=== PATIENT | female | born 1985 | race African-American/Black ===

== ENCOUNTER 2016-05-27 19:57 | Emergency (ER) | payer MEDICARE, OTHER ==
[~2016-05-27] VITALS: Ht 165.1 cm; Wt 88.5 kg
[~2016-05-27 19:57] MED LIST: FOLI1TAB16 PO; HYDR500C3 PO; OXYC10TA PO; OXYC30TA PO; PROAIR HFA8.5 GM IH
[2016-05-27] MEDS ORDERED: IV NORMAL SALINE 1000ML BAG 1,000 ML IV ONE (20:30)
[2016-05-27] MEDS ORDERED: HYDROMORPHONE 2 MG/ML VIAL. IV ONE (20:30)
[2016-05-27] MEDS ORDERED: ONDANSETRON PF 4 MG/2 ML VIAL. IV ONE (20:30)
[2016-05-27 20:32] LABS: BASO # 0.1 x10^3/uL (0.0-0.2); BASO % 1 % (0-3); EOS % 2 % (0-3); HEMATOCRIT 30.4 % (36.0-47.0); HEMOGLOBIN 10.4 g/dL (12.0-15.5); LYMPH # 3.8 x10^3/uL (1.0-4.8); LYMPH % 25 % (24-48); MEAN CORPUSCULAR HEMOGLOBIN 31 pg (25-35); MEAN CORPUSCULAR HGB CONC 34 g/dL (31-37); MEAN CORPUSCULAR VOLUME 91 fL (79-100); MONO % 9 % (0-9); NEUT % 63 % (31-73); PLATELET COUNT 233 x10^3/uL (140-400); RED BLOOD COUNT 3.34 x10^6/uL (3.50-5.40); RED CELL DISTRIBUTION WIDTH 14.7 % (11.5-14.5); WHITE BLOOD COUNT 15.2 x10^3/uL (4.0-11.0)
[2016-05-27 20:36] LABS: RETIC COUNT 3.4 % (0.5-2.5)
[2016-05-27 20:42] LABS: CALCIUM 8.4 mg/dL (8.5-10.1); CREATININE 0.7 mg/dL (0.6-1.0); GFR 118.1; POTASSIUM 3.6 mmol/L (3.5-5.1)
--- NOTE | 2016-05-27 20:57 | PHYS DOC ---
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 She states her right arm is aching and throbbing. She denies that it swollen. She states she did not injure the arm. She states she's been unable to get it under control with her pain regimen at home. She denies any fever or chest pain. [] Review of Systems Review of Systems Constitutional: Denies fever or chills [] Eyes: Denies change in visual acuity, redness, or eye pain [] HENT: Denies nasal congestion or sore throat [] Respiratory: Denies cough or shortness of breath [] Cardiovascular: No additional information not addressed in HPI [] GI: Denies abdominal pain, nausea, vomiting, bloody stools or diarrhea [] : Denies dysuria or hematuria [] Musculoskeletal: Right arm pain [] Integument: Denies rash or skin lesions [] Neurologic: Denies headache, focal weakness or sensory changes [] Endocrine: Denies polyuria or polydipsia [] Current Medications Current Medications Current Medications Medications (Trade) Dose Ordered Sig/[facility] Start Time Stop Time Status Last Admin Dose Admin Hydromorphone HCl (Dilaudid) 1 mg 1X ONCE 05/27/16 20:30 05/27/16 20:31 DC 05/27/16 20:39 1 MG Ondansetron HCl (Zofran) 4 mg 1X ONCE 05/27/16 20:30 05/27/16 20:31 DC 05/27/16 20:39 4 MG Sodium Chloride (Iv Sodium Chloride 0.9% 1000ml Bag) 1,000 ml @ 1,000 mls/hr 1X ONCE 05/27/16 20:30 05/27/16 21:29 DC 05/27/16 20:40 1,000 MLS/HR Allergies Allergies Allergies Coded Allergies Type Severity Reaction Last Updated Verified zolmitriptan Allergy Severe angioedema 10/04/14 Yes Physical Exam Physical Exam Constitutional: Well developed, well nourished, moderate distress, non-toxic appearance. [] HENT: Normocephalic, atraumatic, bilateral external ears normal, oropharynx moist, no oral exudates, nose normal. [] Eyes: PERRLA, EOMI, conjunctiva normal, no discharge. [] Neck: Normal range of motion, no tenderness, supple, no stridor. [] Cardiovascular:Heart rate regular rhythm, no murmur [] Lungs & Thorax: Bilateral breath sounds clear to auscultation [] Abdomen: Bowel sounds normal, soft, no tenderness, no masses, no pulsatile masses. [] Skin: Warm, dry, no erythema, no rash. [] Back: No tenderness, no CVA tenderness. [] Extremities: No tenderness, no cyanosis, no clubbing, ROM intact, no edema, no swelling. [] Neurologic: Alert and oriented X 3, normal motor function, normal sensory function, no focal deficits noted. [] Psychologic: Anxious. [] Current Patient Data Vital Signs Vital Signs Date Time Temp Pulse Resp B/P Pulse Ox O2 Delivery O2 Flow Rate FiO2 05/27/16 20:25 99.3 81 20 125/72 95 Room Air 99.3 Lab Values Laboratory Tests Test 05/27/16 20:20 White Blood Count 15.2x10^3/uL (4.0-11.0) H Red Blood Count 3.34x10^6/uL (3.50-5.40) L Hemoglobin 10.4g/dL (12.0-15.5) L Hematocrit 30.4% (36.0-47.0) L Mean Corpuscular Volume 91fL (79-100) Mean Corpuscular Hemoglobin 31pg (25-35) Mean Corpuscular Hemoglobin Concent 34g/dL (31-37) Red Cell Distribution Width 14.7% (11.5-14.5) H Platelet Count 233x10^3/uL (140-400) Neutrophils (%) (Auto) 63% (31-73) Lymphocytes (%) (Auto) 25% (24-48) Monocytes (%) (Auto) 9% (0-9) Eosinophils (%) (Auto) 2% (0-3) Basophils (%) (Auto) 1% (0-3) Neutrophils # (Auto) 9.6x10^3uL (1.8-7.7) H Lymphocytes # (Auto) 3.8x10^3/uL (1.0-4.8) Monocytes # (Auto) 1.4x10^3/uL (0.0-1.1) H Eosinophils # (Auto) 0.3x10^3/uL (0.0-0.7) Basophils # (Auto) 0.1x10^3/uL (0.0-0.2) Platelet Estimate Adequate (ADEQUATE) Giant Platelets Occ Polychromasia Slight Sickle Cells Occ Target Cells Mod Schistocytes Few Reticulocyte Count (auto) 3.4% (0.5-2.5) H Sodium Level 143mmol/L (136-145) Potassium Level 3.6mmol/L (3.5-5.1) Chloride Level 106mmol/L (98-107) Carbon Dioxide Level 28mmol/L (21-32) Anion Gap 9 (6-14) Blood Urea Nitrogen 4mg/dL (7-20) L Creatinine 0.7mg/dL (0.6-1.0) Estimated GFR (Cockcroft-Gault) 118.1 Glucose Level 105mg/dL (70-99) H Calcium Level 8.4mg/dL (8.5-10.1) L Laboratory Tests 05/27/16 20:20 Laboratory Tests 05/27/16 20:20 EKG EKG [] Radiology/Procedures Radiology/Procedures [] Course & Med Decision Making Course & Med Decision Making Pertinent Labs and Imaging studies reviewed. (See chart for details) [31-year-old female with sickle cell disease presents with sickle cell pain. She had right arm pain. She was given IV fluids Dilaudid which did help alleviate her symptoms. Patient does have a slightly elevated reticulocyte count I feel patient is safe for discharge home at this time Dragon Disclaimer Dragon Disclaimer This electronic medical record was generated, in whole or in part, using a voice recognition dictation system. Departure Departure Impression: Primary Impression: Sickle cell pain crisis Disposition: 01 HOME, SELF-CARE Condition: IMPROVED Referrals: JANKI MILLER MD (PCP) Patient Instructions: Sickle Cell Pain Crisis Additional Instructions: Thank you for allowing us to participate in your care today. Followup with your primary care physician in 3 days if your symptoms do not improve. Return to the emergency department you have any new or concerning findings. This should be evaluated by the primary care physician and any necessary consulting services for continued management within a few days after discharge. Return to emergency room if you have any new or concerning symptoms including but not limited to fever, chills, nausea, vomiting, intractable pain, any new rashes, chest pain, shortness of air, uncontrolled bleeding, difficulty breathing, and/or vision loss. You may have been prescribed medication that can change in your level of thinking and ability to operate machinery. These medications include hydrocodone and Ativan. Also, Benadryl has been known to do this as well. Be sure to check with your pharmacist and ask if the medications you've prescribed can affect your level of consciousness. I recommend not operating heavy machinery or driving while on medication such as these. Scripts Oxycodone/Apap 5-325 (Percocet 5-325 Mg Tablet)1 Each Tablet1 Tab PO PRN Q6HRS PRN PAIN #30 TAB Prov:SARANYA ORDRIGUEZ DO 05/27/16 SARANYA RODRIGUEZ DO May 27, 2016 20:57
[2016-05-27 21:19] LABS: PLT ESTIMATE ADEQUATE (ADEQUATE); SICKLE CELLS OCC; TARGET CELLS MOD
[2016-05-27 21:20] LABS: POLYCHROMASIA SLIGHT; SCHISTOCYTES FEW
[2016-05-27 21:39] VITALS: BP 117/69
[2016-05-27] MEDS ORDERED: OXYC-323 PO (21:52)
== END 2016-05-27 22:00 | disposition home or self-care (01) ==
LOC: ER 19:57
DX: D57.00 Hb-SS disease with crisis, unspecified (principal); Z88.8 Allergy status to other drugs, medicaments and biological substances
CPT/HCPCS: 36415; 80048; 85007; 85027; 85045; 96361; 96374; 96375; 99284; J1170; J2405; J7030

== ENCOUNTER → 2016-07-16 | Outpatient (CLI) | payer MEDICARE, OTHER ==
[~2016-07-16] VITALS: Ht 167.6 cm; Wt 87.1 kg
[~2016-07-16] MED LIST changes: +LIDOCAINE 1% / SOD BICARB 8.4% 20 ML VIAL. IJ ONE; +OXYC-323 PO
--- NOTE | 2016-07-16 14:24 | RAD ---
Procedure: Ultrasound-guided right breast biopsy with vacuum assistance and marker deployment. Diagnostic right mammogram. History: Known fibroadenoma, biopsy proven. Second mass in the right breast. Technique: The procedure, its risk and benefits, and potential complications were discussed with the patient. All questions were answered. Written consent to proceed was obtained. Timeout procedure was performed. Patient was prepped and draped in the usual manner. 1% lidocaine was administered locally. The previously biopsied mass around 10:00 as well as the mass of concern at 12:00 were both identified. 12-gauge [place] vacuum-assisted needle was positioned into the mass at 12:00, image documenting needle position stored. 5 samples were obtained. While attempting to place the marker, the guide needle became dislodged. Therefore, an Ultracor gel marker was instead placed. Image documenting needle and marker position was stored. The patient tolerated the procedure well. No significant hematoma post procedure was identified. Post procedure CC and MLO views demonstrates placement of a marker. Mass biopsied was occult on mammogram, only visualized on previous ultrasound. Impression: Ultrasound-guided biopsy with vacuum assisted device and placement of marker. Await final pathology results. Addendum: Pathology results are now available. Fibroadenomatous changes as well as fibrocystic changes with components of stromal fibrosis, cystic change and focal chronic inflammation are noted. There is no atypia or evidence of malignancy. Findings are compatible with the imaging appearance which was most suggestive of fibroadenoma. Previous biopsy of second lesion also reportedly demonstrated fibroadenoma.
--- NOTE | 2016-07-17 14:27 | PATHOLOGY ---
PATHOLOGY REPORT * * * * * * * * FINAL DIAGNOSIS: Breast tissue, right breast mass needle biopsy: - Fibrocystic changes with components of stromal fibrosis, cystic change, and focal chronic inflammation. - Fibroadenomatous changes, focal. COMMENT: There is no atypia or evidence of malignancy. (JPM:; d/t: 07/17/16) REPORT ELECTRONICALLY SIGNED BY: Rogers Garcia M.D. DATE/TIME: 07/17/2016 14:25 * * * * * * * * GROSS PATHOLOGY: Received in formalin labeled "Una Vanessa, R breast," are multiple needle cores of yellow-zuniga fibrofatty tissue measuring 2.4 x 2.2 x 0.4 cm in aggregate dimensions. The tissue is submitted in its entirety in cassette A1. The cold ischemic time and time in formalin are not provided. The time out of formalin is 9:51 PM on 07/16/2016. (CAA; 07/16/2016) INITIAL CPT CODE(S): A; 82098 Professional services performed by [facility] [place] [address] Technical services performed by [facility] at [address] [place] [address]. SPECIMEN(S) RECEIVED: A.Right breast biopsy CLINICAL HISTORY: Right breast mass biopsy PATIENT: UNA VANESSA /AGE: 1 1985 (Age: 31) PATIENT #: [id number] ALT CASE #: SPECIMEN COLLECTION DATE: 07/16/2016 SPECIMEN RECEIVED DATE: 07/16/2016 [facility] - [address] [place] [address] - PHONE: [phone] * * * END OF REPORT * * *
== END | disposition home or self-care (01) ==
LOC: US 09:54
PROVIDERS: ATTEND Surgery
DX: N63 Unspecified lump in breast (principal)
CPT/HCPCS: 76942; C1713; G0206; 77065

== ENCOUNTER 2017-05-03 06:58 | Emergency (ER) | payer MEDICARE, OTHER ==
[2017-05-03] MEDS: BUPIVACAINE 0.5% 50 ML VIAL. INFIL (08:38)
== END 2017-05-03 08:42 | disposition home or self-care (01) ==
LOC: ER 06:58
DX: S61.101A Unspecified open wound of right thumb with damage to nail, initial encounter (principal); Z88.8 Allergy status to other drugs, medicaments and biological substances; W50.0XXA Accidental hit or strike by another person, initial encounter; Y93.89 Activity, other specified; Y92.89 Other specified places as the place of occurrence of the external cause; Y99.8 Other external cause status
CPT/HCPCS: 29130; 64450; 99284-25; J3490

== ENCOUNTER 2018-02-19 03:17 | Emergency (ER) | payer MEDICARE, OTHER ==
[~2018-02-19] VITALS: Ht 165.1 cm; Wt 88.0 kg
[~2018-02-19 03:17] MED LIST changes: +HYDR500C16 PO; -HYDR500C3 PO; +IBUP-1060 PO; -LIDOCAINE 1% / SOD BICARB 8.4% 20 ML VIAL. IJ ONE
--- NOTE | 2018-02-19 03:46 | PHYS DOC ---
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 She's not sure what kind of sickle cell disease she has. She is followed by Dr. Coyne at the [facility]. She was diagnosed with sickle-cell at 20 years old. Her last crisis was a week ago which she treated home with oxycodone. She "normally gets Dilaudid" in the emergency department for her sickle cell crises. Last 3 days, she's had progressive bilateral leg pain and intermittent chest pain no shortness breath or fevers. Denies any abdominal pain nausea vomiting. Review of Systems Review of Systems Constitutional: Denies fever or chills Eyes: Denies change in visual acuity, redness, or eye pain HENT: Denies nasal congestion or sore throat Respiratory: Denies cough or shortness of breath Cardiovascular: With chest pain, no palpitations GI: Denies abdominal pain, nausea, vomiting, bloody stools or diarrhea : Denies dysuria or hematuria Musculoskeletal: Denies back pain with bilateral leg pain Integument: Denies rash or skin lesions Neurologic: Denies headache, focal weakness or sensory changes Endocrine: Denies polyuria or polydipsia All other systems were reviewed and found to be within normal limits, except as documented in this note. Current Medications Current Medications Current Medications Medications (Trade) Dose Ordered Sig/[facility] Start Time Stop Time Status Last Admin Dose Admin Cephalexin HCl (Keflex) 500 mg 1X ONCE 02/19/18 06:30 02/19/18 06:31 DC 02/19/18 06:42 500 MG Fentanyl Citrate (Fentanyl 2ml Vial) 50 mcg 1X ONCE 02/19/18 05:30 02/19/18 05:31 DC 02/19/18 05:39 50 MCG Sodium Chloride 1,000 ml @ 1,000 mls/hr 1X ONCE 02/19/18 04:30 02/19/18 05:29 DC 02/19/18 04:30 1,000 MLS/HR Allergies Allergies Allergies Coded Allergies Type Severity Reaction Last Updated Verified zolmitriptan Allergy Severe angioedema 10/04/14 Yes Physical Exam Physical Exam Constitutional: Well developed, well nourished, no acute distress, non-toxic appearance. HENT: Normocephalic, atraumatic, bilateral external ears normal, oropharynx moist, no oral exudates, nose normal. Eyes: PERRLA, EOMI, conjunctiva normal, no discharge. Neck: Normal range of motion, no tenderness, supple, no stridor. Cardiovascular:Heart rate regular rhythm, no murmur Lungs & Thorax: Bilateral breath sounds clear to auscultation Abdomen: Bowel sounds normal, soft, no tenderness, no masses, no pulsatile masses. Skin: Warm, dry, no erythema, no rash. Back: No tenderness, no CVA tenderness. Extremities: No tenderness or swelling appreciated on palpation, no cyanosis, no clubbing, ROM intact, no edema. No calf tenderness or swelling noted Neurologic: Alert and oriented X 3, normal motor function, normal sensory function, no focal deficits noted. Psychologic: Affect normal, judgement normal, mood normal. Current Patient Data Vital Signs Vital Signs Date Time Temp Pulse Resp B/P (MAP) Pulse Ox O2 Delivery O2 Flow Rate FiO2 02/19/18 06:22 78 14 116/68 (84) 95 Room Air 02/19/18 03:30 99.2 99.2 Lab Values Laboratory Tests Test 02/19/18 03:45 02/19/18 04:20 White Blood Count 12.7 x10^3/uL (4.0-11.0) H Red Blood Count 3.67 x10^6/uL (3.50-5.40) Hemoglobin 11.7 g/dL (12.0-15.5) L Hematocrit 33.3 % (36.0-47.0) L Mean Corpuscular Volume 91 fL (79-100) Mean Corpuscular Hemoglobin 32 pg (25-35) Mean Corpuscular Hemoglobin Concent 35 g/dL (31-37) Red Cell Distribution Width 14.4 % (11.5-14.5) Platelet Count 227 x10^3/uL (140-400) Neutrophils (%) (Auto) 57 % (31-73) Lymphocytes (%) (Auto) 30 % (24-48) Monocytes (%) (Auto) 9 % (0-9) Eosinophils (%) (Auto) 3 % (0-3) Basophils (%) (Auto) 1 % (0-3) Neutrophils # (Auto) 7.2 x10^3uL (1.8-7.7) Lymphocytes # (Auto) 3.8 x10^3/uL (1.0-4.8) Monocytes # (Auto) 1.2 x10^3/uL (0.0-1.1) H Eosinophils # (Auto) 0.3 x10^3/uL (0.0-0.7) Basophils # (Auto) 0.1 x10^3/uL (0.0-0.2) Platelet Estimate Adequate (ADEQUATE) Large Platelets Present Giant Platelets Present Reticulocyte Count (auto) 3.0 % (0.5-2.5) H Sickle Cell Screen Positive Sodium Level 138 mmol/L (136-145) Potassium Level 3.8 mmol/L (3.5-5.1) Chloride Level 102 mmol/L (98-107) Carbon Dioxide Level 28 mmol/L (21-32) Anion Gap 8 (6-14) Blood Urea Nitrogen 9 mg/dL (7-20) Creatinine 0.8 mg/dL (0.6-1.0) Estimated GFR (Cockcroft-Gault) 100.6 BUN/Creatinine Ratio 11 (6-20) Glucose Level 92 mg/dL (70-99) Calcium Level 9.4 mg/dL (8.5-10.1) Total Bilirubin 1.9 mg/dL (0.2-1.0) H Aspartate Amino Transferase (AST) 33 U/L (15-37) Alanine Aminotransferase (ALT) 48 U/L (14-59) Alkaline Phosphatase 116 U/L (46-116) Troponin I Quantitative < 0.017 ng/mL (0.000-0.055) Total Protein 8.4 g/dL (6.4-8.2) H Albumin 3.8 g/dL (3.4-5.0) Albumin/Globulin Ratio 0.8 (1.0-1.7) L Serum Test, Qualitative Negative (NEG) Urine Collection Type Unknown Urine Color Yellow Urine Clarity Cloudy Urine pH 7.0 Urine Specific [place] 1.015 Urine Protein Negative mg/dL (NEG-TRACE) Urine Glucose (UA) Negative mg/dL (NEG) Urine Ketones (Stick) Negative mg/dL (NEG) Urine Blood Negative (NEG) Urine Nitrite Negative (NEG) Urine Bilirubin Negative (NEG) Urine Urobilinogen Dipstick 1.0 mg/dL (0.2 mg/dL) Urine Leukocyte Esterase Negative (NEG) Urine RBC 0 /HPF (0-2) Urine WBC 1-4 /HPF (0-4) Urine Squamous Epithelial Cells Mod /LPF Urine Bacteria Moderate /HPF (0-FEW) Laboratory Tests 02/19/18 03:45 Laboratory Tests 02/19/18 03:45 Microbiology 02/19/18 Urine Culture - Final, Complete 02/19/18 Urine Culture Result 1 (MICHAEL) - Final, Complete Microbiology 02/19/18 Urine Culture - Final, Complete 02/19/18 Urine Culture Result 1 (MICHAEL) - Final, Complete EKG EKG ECG 05:06 NSR @ 69 with normal axis, normal interval and no ST-T wave changes suggestive of ischemia Radiology/Procedures Radiology/Procedures [facility] [address] [place], [place] [id number] IMAGING REPORT Signed PATIENT: MARTITA PRECIADO ACCOUNT: [id number] : 1985 LOCATION: ER AGE: 32 SEX: F EXAM STATUS: DEP ER ORD. PHYSICIAN: SHASTA LARA MD REASON: CP PROCEDURE: PORTABLE CHEST 1V Portable chest, 02/19/2018: HISTORY: Chest pain Comparison is made to a study from 12/31/2014. The heart is enlarged and unchanged. The pulmonary vascularity is normal. No pulmonary infiltrate is seen. There is no evidence of pleural fluid. IMPRESSION: 1. Cardiomegaly. 2. No acute abnormality is detected. Electronically signed by: Royal Hmuphrey MD (02/19/2018 7:40 AM) [facility] DICTATED and SIGNED BY: ROYAL HUMPHREY MD DATE: 02/19/18 0739 Course & Med Decision Making Course & Med Decision Making Pertinent Labs and Imaging studies reviewed. (See chart for details) Emergency Department course Patient presents with chest and bilateral leg pain. DDx-sickle cell crisis, infection, dehydration 06:00 Patient improved after IV NS hydration and serial doses of fentanyl with decreased pain. Labs remarkable for leukocytosis and anemia. ECG and troponin showed no evidence acute coronary syndrome. Chest x-ray showed cardiomegaly unchanged from prior CXR. UA with bacteria, no leukocyte esterase. Urine sent for culture. Sickle Cell screen was positive. Patient given Keflex. Patient will follow-up with PCP for further evaluation. Dragon Disclaimer Dragon Disclaimer This electronic medical record was generated, in whole or in part, using a voice recognition dictation system. Departure Departure Impression: Primary Impression: Sickle cell pain crisis Additional Impression: Bacteria in urine Disposition: HOME, SELF-CARE Condition: STABLE Referrals: JANKI MILLER MD (PCP) Follow-up today for further evaluation Patient Instructions: Sickle Cell Pain Crisis, Urinary Tract Infection Additional Instructions: If you develop worse pain, shortness of breath, fevers, vomiting return to the Emergency Department Follow-up with Dr. Krishan Coyne: [facility] [address] [place] [address] Call today for an appointment Scripts Cephalexin (KEFLEX) 500 Mg Capsule 1 CAP PO BID, #14 CAP Prov: SHASTA LARA MD 02/19/18 Problem Qualifiers SHASTA LARA MD Feb 19, 2018 03:46
[2018-02-19 04:11] LABS: BASO # 0.1 x10^3/uL (0.0-0.2); BASO % 1 % (0-3); EOS # 0.3 x10^3/uL (0.0-0.7); EOS % 3 % (0-3); HEMATOCRIT 33.3 % (36.0-47.0); HEMOGLOBIN 11.7 g/dL (12.0-15.5); LYMPH # 3.8 x10^3/uL (1.0-4.8); LYMPH % 30 % (24-48); MEAN CORPUSCULAR HEMOGLOBIN 32 pg (25-35); MEAN CORPUSCULAR HGB CONC 35 g/dL (31-37); MEAN CORPUSCULAR VOLUME 91 fL (79-100); MONO # 1.2 x10^3/uL (0.0-1.1); MONO % 9 % (0-9); NEUT # 7.2 x10^3uL (1.8-7.7); NEUT % 57 % (31-73); PLATELET COUNT 227 x10^3/uL (140-400); RED BLOOD COUNT 3.67 x10^6/uL (3.50-5.40); RED CELL DISTRIBUTION WIDTH 14.4 % (11.5-14.5); WHITE BLOOD COUNT 12.7 x10^3/uL (4.0-11.0)
[2018-02-19 04:20] LABS: CALCIUM 9.4 mg/dL (8.5-10.1); CREATININE 0.8 mg/dL (0.6-1.0); GFR 100.6; POTASSIUM 3.8 mmol/L (3.5-5.1)
[2018-02-19] MEDS: fentaNYL PF VIAL 100 MCG/2 ML VIAL IV ONE ×2 (04:23→05:39)
[2018-02-19 04:25] LABS: ALBUMIN 3.8 g/dL (3.4-5.0); ALBUMIN/GLOBULIN RATIO 0.8 (1.0-1.7); TOTAL BILIRUBIN 1.9 mg/dL (0.2-1.0); TOTAL PROTEIN 8.4 g/dL (6.4-8.2)
[2018-02-19] MEDS: IV NORMAL SALINE 1000ML BAG 1,000 ML IV ONE (04:30)
[2018-02-19 04:34] LABS: BILIRUBIN,URINE NEGATIVE (NEG); CLARITY,URINE CLOUDY; COLOR,URINE YELLOW; NITRITE,URINE NEGATIVE (NEG); PROTEIN,URINE NEGATIVE (NEG-TRACE)
[2018-02-19 04:58] LABS: BACTERIA,URINE MODERATE /HPF (0-FEW); RBC,URINE 0 /HPF (0-2)
[2018-02-19 04:59] LABS: SQUAMOUS EPITHELIAL CELL,UR MOD /LPF
[2018-02-19 05:11] LABS: PREG TEST PT QUAL NEGATIVE (NEG)
--- NOTE | 2018-02-19 05:14 | EKG ---
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
[2018-02-19 06:22] VITALS: BP 116/68
[2018-02-19] MEDS ORDERED: CEPH-264 PO (06:22)
[2018-02-19] MEDS: CEPHALEXIN 250 MG CAPSULE. PO ONE (06:42)
--- NOTE | 2018-02-19 07:44 | RAD ---
Portable chest, 02/19/2018: HISTORY: Chest pain Comparison is made to a study from 12/31/2014. The heart is enlarged and unchanged. The pulmonary vascularity is normal. No pulmonary infiltrate is seen. There is no evidence of pleural fluid. IMPRESSION: 1. Cardiomegaly. 2. No acute abnormality is detected. Electronically signed by: Royal Humphrey MD (02/19/2018 7:40 AM) [facility]
[2018-02-19 07:59] LABS: PLT ESTIMATE ADEQUATE (ADEQUATE)
== END 2018-02-19 06:45 | disposition home or self-care (01) ==
LOC: ER 03:17
DX: D57.00 Hb-SS disease with crisis, unspecified (principal); R82.71 Bacteriuria; R07.89 Other chest pain; M79.604 Pain in right leg; M79.605 Pain in left leg; I51.7 Cardiomegaly; Z88.8 Allergy status to other drugs, medicaments and biological substances
CPT/HCPCS: 36415; 71045; 80053; 81001; 84484; 84703; 85025; 85045; 85660; 87086; 93005; 96374; 96376; 99285; J3010; J7030

== ENCOUNTER → 2018-07-30 | Outpatient (CLI) | payer MEDICARE, OTHER ==
[~2018-07-30] MED LIST changes: +ALBU2.5V8 IH; +CEPH-264 PO; -OXYC-323 PO; +OXYC1TAB15 PO; -OXYC30TA PO; +OXYC30TA3 PO; -PROAIR HFA8.5 GM IH
--- NOTE | 2018-07-30 12:02 | RAD ---
Examination: MRI of the left hip without contrast HISTORY: History of left hip pain COMPARISON: 08/02/2015 Technique: Multiplanar, multisequence MR imaging of the left hip were performed without contrast. FINDINGS: The left femoral head is within the acetabulum. The attachment of the hamstring tendons to the ischial tuberosity grossly appears intact. The attachment of the iliopsoas tendon to the lesser trochanter grossly appears intact. The attachment of the gluteal tendons to the greater trochanter grossly appears intact. The attachment of the rectus femoris tendon to the anterior-inferior iliac spine grossly appears intact. 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 There is a diffuse decreased T1 signal identified throughout the visualized bone marrow likely red marrow conversion. The visualized labrum grossly appears unremarkable. IMPRESSION: 1. 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 No evidence of acute foci of avascular necrosis identified. 2. There is a diffuse decreased T1 signal identified throughout the visualized bone marrow likely red marrow conversion probably from known sickle cell disease. Electronically signed by: Israel Saleh MD (07/30/2018 11:59 AM) [id number]
--- NOTE | 2018-07-30 12:21 | RAD ---
EXAMINATION: Magnetic resonance imaging (MRI) of the lumbar spine without contrast 07/30/2018 11:15 AM HISTORY: Worsening low back pain with left hip pain. TECHNIQUE: Multiplanar multi-weighted MRI of the lumbar spine was performed without intravenous contrast using the standard lumbar spine protocol. Contrast information: None administered. COMPARISON: None available. FINDINGS: The alignment of the lumbar spine is normal. Vertebral bodies demonstrate normal signal intensity on all sequences. There are no compression fractures. The conus medullaris terminates at the level of L1. The distal spinal cord signal intensity is normal. Intervertebral disks have normal height and signal intensity. There are no annular fissures identified. There is a 13 mm renal cortical cyst in the left kidney. The aorta is normal. L1-L2: The disc is normal in configuration. There is no facet arthropathy. There is no neuroforaminal stenosis. There is no spinal canal stenosis. L2-L3: The disc is normal in configuration. There is no facet arthropathy. There is no neuroforaminal stenosis. There is no spinal canal stenosis. L3-L4: The disc is normal in configuration. There is no facet arthropathy. There is no neuroforaminal stenosis. There is no spinal canal stenosis. L4-L5: The disc is normal in configuration. There is no facet arthropathy. There is no neuroforaminal stenosis. There is no spinal canal stenosis. L5-S1: The disc is normal in configuration. There is no facet arthropathy. There is no neuroforaminal stenosis. There is no spinal canal stenosis. IMPRESSION: No significant neuroforaminal or spinal canal stenosis. Electronically signed by: Kaitlin Dalal MD (07/30/2018 12:18 PM) [facility]
== END | disposition home or self-care (01) ==
LOC: MRI 10:12
DX: M54.5 Low back pain (principal); M25.552 Pain in left hip; N28.1 Cyst of kidney, acquired
CPT/HCPCS: 72148; 73721

== ENCOUNTER 2019-02-13 02:23 | Inpatient (IN) | payer MEDICARE, OTHER ==
[~2019-02-13] VITALS: Ht 165.1 cm; Wt 94.4 kg
[2019-02-13] MEDS ORDERED: fentaNYL PF VIAL 100 MCG/2 ML VIAL IV PRN (02:45)
[2019-02-13] MEDS ORDERED: IV NORMAL SALINE 1000ML BAG 1,000 ML IV SCH (03:00)
[2019-02-13] MEDS ORDERED: ONDANSETRON PF 4 MG/2 ML VIAL. IV ONE (03:00)
[2019-02-13 03:12] LABS: BILIRUBIN,URINE NEGATIVE (NEG); CLARITY,URINE CLEAR; COLOR,URINE YELLOW; NITRITE,URINE NEGATIVE (NEG); PH,URINE 7.5; PROTEIN,URINE NEGATIVE (NEG-TRACE)
[2019-02-13 03:16] LABS: SQUAMOUS EPITHELIAL CELL,UR MOD /LPF
[2019-02-13 03:17] LABS: BACTERIA,URINE FEW /HPF (0-FEW); RBC,URINE 0 /HPF (0-2); WBC,URINE OCC /HPF (0-4)
[2019-02-13 03:35] LABS: CALCIUM 8.4 mg/dL (8.5-10.1); CREATININE 1.1 mg/dL (0.6-1.0); GFR 69.2; POTASSIUM 3.9 mmol/L (3.5-5.1)
[2019-02-13 03:36] LABS: BASO # 0.3 x10^3/uL (0.0-0.2); BASO % 2 % (0-3); EOS # 0.4 x10^3/uL (0.0-0.7); EOS % 3 % (0-3); HEMATOCRIT 27.9 % (36.0-47.0); HEMOGLOBIN 9.9 g/dL (12.0-15.5); LYMPH # 4.5 x10^3/uL (1.0-4.8); LYMPH % 39 % (24-48); MEAN CORPUSCULAR HEMOGLOBIN 32 pg (25-35); MEAN CORPUSCULAR HGB CONC 35 g/dL (31-37); MEAN CORPUSCULAR VOLUME 91 fL (79-100); MONO # 1.2 x10^3/uL (0.0-1.1); MONO % 10 % (0-9); NEUT # 5.1 x10^3/uL (1.8-7.7); NEUT % 45 % (31-73); PLATELET COUNT 225 x10^3/uL (140-400); RED BLOOD COUNT 3.07 x10^6/uL (3.50-5.40); RED CELL DISTRIBUTION WIDTH 14.9 % (11.5-14.5); WHITE BLOOD COUNT 11.4 x10^3/uL (4.0-11.0)
[2019-02-13 03:40] LABS: ALBUMIN 3.2 g/dL (3.4-5.0); ALBUMIN/GLOBULIN RATIO 0.9 (1.0-1.7); MAGNESIUM 1.9 mg/dL (1.8-2.4); TOTAL BILIRUBIN 1.5 mg/dL (0.2-1.0); TOTAL PROTEIN 6.8 g/dL (6.4-8.2)
[2019-02-13 04:00] LABS: PLT ESTIMATE ADEQUATE (ADEQUATE)
[2019-02-13 04:01] LABS: ANISOCYTOSIS SLIGHT; HYPOCHROMIA SLIGHT; POIKILOCYTOSIS MOD; SPHEROCYTES OCC; TARGET CELLS MOD
[2019-02-13 04:02] LABS: POLYCHROMASIA SLIGHT; SICKLE CELLS OCC
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
[2019-02-13] MEDS ORDERED: ONDANSETRON PF 4 MG/2 ML VIAL. IV PRN ×2 (05:45→14:00)
[2019-02-13 06:59] VITALS: BP 93/57
[2019-02-13] MEDS: IV NORMAL SALINE 1000ML BAG 1,000 ML IV SCH ×3 (07:11→20:12)
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
[2019-02-13] MEDS ORDERED: FLUT1DIS IH (09:44)
[2019-02-13] MEDS ORDERED: PHEN37.53 PO (09:44)
[2019-02-13] MEDS ORDERED: OXYC30TA3 PO (09:44)
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
[2019-02-13] MEDS: fentaNYL PF VIAL 100 MCG/2 ML VIAL IV PRN ×4 (10:38→23:00)
[2019-02-13 11:11] VITALS: BP 115/65
[2019-02-13] MEDS ORDERED: ALBUTEROL SULFATE 2.5 MG/3 ML NEBU. NEB PRN ×2 (13:30→14:00)
[2019-02-13] MEDS ORDERED: cloNIDine HCL 0.1 MG TABLET PO PRN (14:00)
[2019-02-13] MEDS ORDERED: ACETAMINOPHEN 325 MG TABLET. PO PRN (14:00)
[2019-02-13] MEDS ORDERED: HYDROXYUREA 500 MG CAPSULE PO SCH (14:00)
[2019-02-13] MEDS ORDERED: MAG HYDROX/ALUMINUM HYD/SIMETH 30 ML ORAL.SUSP PO PRN (14:00)
[2019-02-13] MEDS ORDERED: LORazepam 0.5 MG TABLET PO PRN (14:00)
[2019-02-13] MEDS ORDERED: guaiFENesin ORAL 200 MG/10 ML LIQUID. PO PRN (14:00)
[2019-02-13] MEDS ORDERED: ZOLPIDEM 5 MG TABLET. PO PRN (14:00)
[2019-02-13] MEDS ORDERED: 0.9 % SODIUM CHLORIDE 10 ML DISP.SYRIN. IV PRN (14:00)
[2019-02-13] MEDS ORDERED: DOCUSATE SODIUM 100 MG CAPSULE. PO PRN (14:00)
[2019-02-13] MEDS: FOLIC ACID 1 MG TABLET. PO SCH (14:07)
[2019-02-13 15:17] VITALS: BP 100/65
[2019-02-13] MEDS: ALBUTEROL SULFATE 2.5 MG/3 ML NEBU. NEB SCH ×2 (16:29→21:43)
[2019-02-13 19:00] VITALS: BP 101/62
[2019-02-13] MEDS ORDERED: BUDESONIDE 0.5 MG/2 ML NEBU. NEB SCH (20:00)
[2019-02-13 23:05] VITALS: BP 96/56
[2019-02-14] MEDS: fentaNYL PF VIAL 100 MCG/2 ML VIAL IV PRN ×2 (01:59→03:39)
[2019-02-14] MEDS: IV NORMAL SALINE 1000ML BAG 1,000 ML IV SCH (02:00)
[2019-02-14 03:05] VITALS: BP 111/70
[2019-02-14] MEDS: fentaNYL PF VIAL 100 MCG/2 ML VIAL IVP PRN ×3 (05:58→13:23)
[2019-02-14 07:00] VITALS: BP 113/79
[2019-02-14] MEDS: ALBUTEROL SULFATE 2.5 MG/3 ML NEBU. NEB SCH ×2 (07:54→10:59)
[2019-02-14] MEDS: FOLIC ACID 1 MG TABLET. PO SCH (08:31)
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
[2019-02-14] MEDS ORDERED: HYDROXYUREA 500 MG CAPSULE PO SCH ×2 (09:00)
[2019-02-14] MEDS ORDERED: ENOXAPARIN 40 MG/0.4 ML SYRINGE. SQ SCH (09:00)
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
[2019-02-14 09:54] LABS: BASO # 0.2 x10^3/uL (0.0-0.2); BASO % 3 % (0-3); EOS # 0.4 x10^3/uL (0.0-0.7); EOS % 4 % (0-3); HEMATOCRIT 28.2 % (36.0-47.0); HEMOGLOBIN 9.8 g/dL (12.0-15.5); LYMPH # 3.8 x10^3/uL (1.0-4.8); LYMPH % 39 % (24-48); MEAN CORPUSCULAR HEMOGLOBIN 32 pg (25-35); MEAN CORPUSCULAR HGB CONC 35 g/dL (31-37); MEAN CORPUSCULAR VOLUME 91 fL (79-100); MONO # 1.2 x10^3/uL (0.0-1.1); MONO % 12 % (0-9); NEUT # 4.2 x10^3/uL (1.8-7.7); NEUT % 43 % (31-73); PLATELET COUNT 223 x10^3/uL (140-400); RED CELL DISTRIBUTION WIDTH 14.9 % (11.5-14.5); WHITE BLOOD COUNT 9.7 x10^3/uL (4.0-11.0)
[2019-02-14 10:14] LABS: ALBUMIN 3.1 g/dL (3.4-5.0); ALBUMIN/GLOBULIN RATIO 0.9 (1.0-1.7); CALCIUM 8.4 mg/dL (8.5-10.1); CREATININE 0.7 mg/dL (0.6-1.0); GFR 116.6; POTASSIUM 3.9 mmol/L (3.5-5.1); TOTAL BILIRUBIN 1.5 mg/dL (0.2-1.0); TOTAL PROTEIN 6.6 g/dL (6.4-8.2)
[2019-02-14 11:00] VITALS: BP 93/58
[2019-02-14] MEDS ORDERED: IV NORMAL SALINE 1000ML BAG 1,000 ML IV ONE (12:15)
--- NOTE | 2019-02-14 14:03 | NUR ---
Discharge Note: MARTITA PRECIADO Discharge instructions and discharge home medications reviewed with Patient and a copy given. All questions have been answered and understanding verbalized. The following instructions and handouts were given: d/c instructions Discontinued lines and drains: Peripheral IV intact. Patient discharged to Home or Self Care with Family Member via Wheelchair
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
== END 2019-02-14 15:29 | disposition home or self-care (01) | DRG 551 ==
LOC: ER 02:23 → 5 SOUTH 05:36
PROVIDERS: ADMIT Family Medicine; ATTEND Family Medicine
DX: S16.1XXA Strain of muscle, fascia and tendon at neck level, initial encounter (principal); D57.219 Sickle-cell/Hb-C disease with crisis, unspecified; M87.9 Osteonecrosis, unspecified; S39.012A Strain of muscle, fascia and tendon of lower back, initial encounter; G43.909 Migraine, unspecified, not intractable, without status migrainosus; S20.219A Contusion of unspecified front wall of thorax, initial encounter; V43.52XA Car driver injured in collision with other type car in traffic accident, initial encounter; Y92.410 Unspecified street and highway as the place of occurrence of the external cause; Y93.89 Activity, other specified; Y99.8 Other external cause status; Z88.8 Allergy status to other drugs, medicaments and biological substances; Z80.9 Family history of malignant neoplasm, unspecified; Z82.49 Family history of ischemic heart disease and other diseases of the circulatory system
CPT/HCPCS: 36415; 70450; 71045; 72125; 73502; 80053; 81001; 81025; 83735; 85025; 85045; 94640; 96361; 96374; 96375; J2405; J3010; J7030; J7613; J7626; 97110; 97530; 97535; 99285-25; G0378

== ENCOUNTER 2019-06-07 23:20 | Emergency (ER) | payer MEDICARE, OTHER ==
[~2019-06-07] VITALS: Ht 165.1 cm; Wt 87.7 kg
[~2019-06-07 23:20] MED LIST changes: +FLUT1DIS IH; +PHEN37.53 PO
[2019-06-08] MEDS ORDERED: HYDR-2163 PO (00:17)
--- NOTE | 2019-06-08 00:18 | PHYS DOC ---
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 Symptoms began 2 days ago while traveling at a stay. Patient denies shortness breath, wheezing. No history of asthma. Reports chest wall pain with worse with coughing. Patient noted recent exposure for influenza. No other acute symptoms or complaints. ] Review of Systems Review of Systems ROS as per HPI All other systems were reviewed and found to be within normal limits, except as documented in this note. Allergies Allergies Allergies Coded Allergies Type Severity Reaction Last Updated Verified zolmitriptan Allergy Severe angioedema 10/04/14 Yes Physical Exam Physical Exam Constitutional: Well developed, well nourished, no acute distress, non-toxic appearance. [] HENT: Normocephalic, atraumatic, bilateral external ears normal, oropharynx moist, no oral exudates, nose, congestion with clear rhinorhea. [] Eyes: PERRLA, EOMI. [] Neck: Normal range of motion. [] Cardiovascular:Heart rate regular rhythm, no murmur [] Lungs & Thorax: Bilateral breath sounds clear to auscultation [] Abdomen: Bowel sounds normal. [] Skin: Warm, dry. [] Back: No tenderness. [] Extremities: No tenderness, no edema. [] Neurologic: Alert and oriented X 3, normal motor function, normal sensory function, no focal deficits noted. [] Psychologic: Affect normal, judgment normal, mood normal. [] EKG EKG [] Radiology/Procedures Radiology/Procedures [] Course & Med Decision Making Course & Med Decision Making Pertinent Labs and Imaging studies reviewed. (See chart for details) [Influenza-like illness without respiratory compromise. Will treat supportively with PCP follow-up. Return precautions reviewed.] Dragon Disclaimer Kip Disclaimer This electronic medical record was generated, in whole or in part, using a voice recognition dictation system. Departure Departure Impression: Primary Impression: Influenza-like illness Disposition: 01 HOME, SELF-CARE Condition: IMPROVED Referrals: JANKI MILLER MD (PCP) Patient Instructions: Influenza, Adult Additional Instructions: Please take ibuprofen and Mucinex-D (OTC) for congestion and body aches, and hydrocodone as needed for additional pain relief. Increase fluid intake and follow up with your PCP in 3-5 days if symptoms persist. Return to the ED if new or worsening symptoms. Scripts Hydrocodone Bit/Acetaminophen (HYDROCODONE-APAP 5-300) 1 Each Tablet 1 TAB PO PRN TID PRN for pain MDD 3 Tablet(s) for 3 Days, #10 TAB 0 Refills Prov: YOON SINGER DO 06/08/19 YOON SINGER DO Jun 08, 2019 00:18
[2019-06-08 00:30] LABS: INFLUENZA A PATIENT NEGATIVE (NEGATIVE); INFLUENZA B PATIENT NEGATIVE (NEGATIVE)
[2019-06-08 00:42] VITALS: BP 114/70
[2019-06-08] MEDS ORDERED: HYDROcodone/APAP 5/325MG 1 TAB TABLET PO ONE (00:45)
== END 2019-06-08 00:42 | disposition home or self-care (01) ==
LOC: ER 23:20
DX: J11.1 Influenza due to unidentified influenza virus with other respiratory manifestations (principal); Z88.8 Allergy status to other drugs, medicaments and biological substances
CPT/HCPCS: 87804; 99284